=== PATIENT | male | born 1990 | race American Indian/Alaskan Native ===

== ENCOUNTER 2016-11-13 11:10 | Emergency (ER) | payer MEDICAID ==
[2016-11-13 11:10] VITALS: BMI 22.6
[2016-11-13 11:16] VITALS: BP 136/80; PULSE 107; RESP 18; TEMP 98.5; O2SAT 97
--- NOTE | 2016-11-13 11:41 | ED PDOC ---
HPI: CCC, URI, Sore Throat Time Seen by Provider: 11/13/16 11:19 Chief Complaint (Provider): Sore throat x 3 days History Per: Patient History/Exam Limitations: no limitations Have you had recent travel within the past 21 days to any of the following countries: [place], [place], [place] or [place]?: No Onset/Duration Of Symptoms: Days Current Symptoms Are (Timing): Still Present Location Of Pain: Throat Sick Contacts (Context): None Associated Symptoms: Fever, Chills, Sore Throat. denies: Cough, Sputum, Nasal Congestion, Vomiting, Diarrhea Ear Symptoms: Bilateral: None Severity: Moderate Additional Complaint(s): Pt states this is similar to previous episode of strep throat last year. Past Medical History Reviewed: Historical Data, Nursing Documentation, Vital Signs Vital Signs: Last Vital Signs Temp 98.5 F 11/13/16 11:15 Pulse 107 H 11/13/16 11:15 Resp 18 11/13/16 11:15 BP 136/80 11/13/16 11:15 Pulse Ox 97 11/13/16 11:15 - Medical History PMH: No Chronic Diseases - Surgical History Surgical History: No Surg Hx - Family History Family History: States: Unknown Family Hx - Living Arrangements Living Arrangements: With Family - Social History Current smoker - smoking cessation education provided: No Alcohol: Social Drugs: Denies - Home Medications Home Medications: Ambulatory Orders Medication Instructions Recorded Dicyclomine [Bentyl] 20 mg PO TID #30 tab 02/27/16 Guaifenesin/Pseudoephedrne HCl 1 tab PO DAILY PRN #30 ter 04/22/16 [Mucinex D 600 mg-60 mg] Promethazine HCl/Codeine 5 ml PO HS #80 ml 04/22/16 [Prometh-Codein 6.25-10 mg/5 ml] Atropine/Diphenoxylate [Lonox 1 tab PO Q8 #10 tab 09/15/16 0.025 MG-2.5 MG] Amoxicillin 875 mg PO BID #20 tab 11/13/16 - Allergies Allergies/Adverse Reactions: Allergies Allergy/AdvReac Type Severity Reaction Status Date / Time No Known Allergies Allergy Verified 04/22/16 18:46 Review of Systems ROS Statement: Except As Marked, All Systems Reviewed And Found Negative Constitutional: Positive for: Fever, Chills, Sweats, Malaise ENT: Positive for: Throat Pain Physical Exam - Reviewed Nursing Documentation Reviewed: Yes Vital Signs Reviewed: Yes - Physical Exam Appears: Positive for: Well, Non-toxic, No Acute Distress Head Exam: Positive for: ATRAUMATIC, NORMAL INSPECTION, NORMOCEPHALIC Skin: Positive for: Normal Color, Warm, DRY Eye Exam: Positive for: Normal appearance ENT: Positive for: Pharyngeal Erythema, Tonsillar Exudate. Negative for: Normal ENT Inspection Neck: Positive for: Normal, Painless ROM Cardiovascular/Chest: Positive for: Regular Rate, Rhythm Respiratory: Positive for: CNT, Normal Breath Sounds Back: Positive for: Normal Inspection Extremity: Positive for: Normal ROM Neurologic/Psych: Positive for: Alert, Oriented - ECG O2 Sat by Pulse Oximetry: 97 Disposition - Clinical Impression Clinical Impression: Strep pharyngitis - Patient ED Disposition Is Patient to be Admitted: No Counseled Patient/Family Regarding: Diagnosis, Need For Followup, Rx Given - Disposition Referrals: [facility] [Outside] Disposition: Routine/Home Disposition Time: 11:40 Condition: STABLE Prescriptions: Amoxicillin 875 mg PO BID #20 tab Instructions: Strep Throat (ED)
== END 2016-11-13 11:45 | disposition home or self-care (01) ==
LOC: H.ER 11:10
DX: J02.0 Streptococcal pharyngitis (principal)

== ENCOUNTER 2017-08-16 19:51 | Emergency (ER) | payer SELFPAY ==
[2017-08-16 19:51] VITALS: BMI 22.6
[2017-08-16 21:09] VITALS: BP 139/81; PULSE 100; RESP 17; TEMP 98.8; O2SAT 99
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
--- NOTE | 2017-08-17 11:26 | RAD ---
PROCEDURE: Left Ankle Radiographs. HISTORY: Posttraumatic left ankle pain COMPARISON: None FINDINGS: BONES: Normal. No fracture. JOINTS: Normal. No osteoarthritis. Ankle mortise maintained. Talar dome intact SOFT TISSUES: Normal. OTHER FINDINGS: None. IMPRESSION: Normal left ankle radiographs.
--- NOTE | 2017-08-17 11:27 | RAD ---
PROCEDURE: Left Foot Radiographs. HISTORY: fall, pain COMPARISON: None. FINDINGS: BONES: Normal. No fracture. JOINTS: Normal. SOFT TISSUES: Normal. OTHER FINDINGS: None. IMPRESSION: Normal left foot radiographs.
== END 2017-08-16 22:57 | disposition home or self-care (01) ==
LOC: H.ER 19:51
DX: S93.402A Sprain of unspecified ligament of left ankle, initial encounter (principal); S93.602A Unspecified sprain of left foot, initial encounter; X50.9XXA Other and unspecified overexertion or strenuous movements or postures, initial encounter; Y92.89 Other specified places as the place of occurrence of the external cause

== ENCOUNTER 2018-06-07 19:10 | Emergency (ER) | payer SELFPAY ==
[2018-06-07 19:10] VITALS: BMI 22.6
[2018-06-07 19:52] VITALS: PULSE 81
--- NOTE | 2018-06-07 20:50 | ED PDOC ---
HPI: Abdomen Time Seen by Provider: 06/07/18 20:10 Chief Complaint (Nursing): Abdominal Pain Chief Complaint (Provider): abdominal pain History Per: Patient History/Exam Limitations: no limitations Outside of [place] travel?: No Exacerbating Factors: None Alleviating Factors: None Last Bowel Movement: Today Additional Complaint(s): 27 y/o M with no PMH who presents to ED for abdominal pain X 3 days. Pt states that he started having RLQ abdominal pain 3 days ago noted while sitting down. He had 3 episodes of N/V that day and has continued to have intermittent nausea but no further vomiting. Denies sick contacts, fever, chills, night sweats, diarrhea, dysuria, penile discharge. Denies ever having had abdominal surgery. Has had normal appetite. Last BM today. Past Medical History Reviewed: Historical Data, Nursing Documentation, Vital Signs Vital Signs: Last Vital Signs Temp 98.6 F 06/07/18 19:50 Pulse 81 06/07/18 19:50 Resp 16 06/07/18 19:50 BP 154/85 H 06/07/18 19:50 Pulse Ox 97 06/07/18 19:50 - Medical History PMH: No Chronic Diseases - Surgical History Surgical History: No Surg Hx - Family History Family History: States: No Known Family Hx - Social History Current smoker - smoking cessation education provided: Yes Alcohol: Social Drugs: Denies - Home Medications Home Medications: Ambulatory Orders Medication Instructions Recorded Ciprofloxacin HCl [Cipro] 500 mg PO BID #14 tablet 01/30/17 Ibuprofen [Motrin Tab] 1 tab PO Q6 PRN #20 tab 08/16/17 - Allergies Allergies/Adverse Reactions: Allergies Allergy/AdvReac Type Severity Reaction Status Date / Time No Known Allergies Allergy Verified 06/07/18 19:50 Physical Exam - Reviewed Nursing Documentation Reviewed: Yes Vital Signs Reviewed: Yes - Physical Exam Appears: Positive for: Non-toxic Head Exam: Positive for: ATRAUMATIC Skin: Positive for: Normal Color Eye Exam: Positive for: Conjunctival injection (b/l) Cardiovascular/Chest: Positive for: Regular Rate, Rhythm Respiratory: Positive for: Normal Breath Sounds Gastrointestinal/Abdominal: Positive for: Soft, Tenderness (RLQ tenderness on palpation), Guarding. Negative for: Mass, Distended, Rebound Back: Positive for: Normal Inspection Rectal: Positive for: Deferred Neurologic/Psych: Positive for: Alert, Oriented - Laboratory Results Result Diagrams: 06/07/18 21:03 06/07/18 21:03 - ECG O2 Sat by Pulse Oximetry: 97 Medical Decision Making Medical Decision Making: cbc, cmp Urine dip CT abd/pelvis w/ IV contrast Pt went for CT but stated that he was concerned as he may have had allergic reaction in the past. I went to evaluate the patient who confirmed that he had a feeling of warmth in his face but never developed throat swelling or itching or rash. Patient agreed to proceed with CT scan. CT findings as per [facility]: 1. Enteritis. Infectious and inflammatory etiologies are considered. Consider consultation with GI service. 2. Small fat containing umbilical hernia is noted. Urine dip; no LE or nitrites. CT findings discussed with patient and advised that he may develop diarrhea. Return instructions given. Stable for d/c home. Disposition - Clinical Impression Clinical Impression: Abdominal pain - Patient ED Disposition Is Patient to be Admitted: No Counseled Patient/Family Regarding: Studies Performed, Diagnosis, Need For Followup - Disposition Referrals: [facility] [Outside] Disposition: Routine/Home Disposition Time: 00:17 Condition: STABLE Additional Instructions: Return to ER if you develop worsening N/V and are unable to keep any liquids down. You may develop diarrhea. If so, follow a low fat, no mild diet for several days. Instructions: Acute Abdomen (Belly Pain), Adult (DC), Nausea and Vomiting, Adult (DC) Forms: [employer] ([place]ayan) Print Language: BAHAMIAN
[2018-06-07 21:07] LABS: BASO # 0.1 K/uL (0.0-0.2); EOS # 0.1 K/uL (0.0-0.7); EOS % 0.9 % (0.0-4.0); HEMOGLOBIN 15.5 g/dL (12.0-18.0); LYMPH # 2.6 K/uL (1.0-4.3); MEAN CORPUSCULAR HEMOGLOBIN 30.8 pg (27.0-31.0); MEAN CORPUSCULAR HGB CONC 33.2 g/dL (33.0-37.0); MEAN PLATELET VOLUME 9.3 fl (7.2-11.7); MONO # 0.5 K/uL (0.0-0.8); MONO % 7.7 % (0.0-10.0); NEUT # 3.6 K/uL (1.8-7.0); NEUT % 52.4 % (50.0-75.0); RBC 5.02 Mil/uL (4.40-5.90); RED CELL DISTRIBUTION WIDTH 13.4 % (11.5-14.5); WHITE BLOOD COUNT 6.8 K/uL (4.8-10.8)
[2018-06-07 21:16] LABS: ALB/GLOB RATIO 1.4 (1.0-2.1); ALBUMIN 4.8 g/dL (3.5-5.0); ALT/SGPT 37 U/L (21-72); AST/SGOT 32 U/L (17-59); BLOOD UREA NITROGEN 10 mg/dl (9-20); GFR NON-AFRICAN AMERICAN > 60
[2018-06-07] MEDS ORDERED: Sodium Chloride 0.9% 50 ML IV ONE (21:45)
[2018-06-07] MEDS ORDERED: Iohexol 300 100 ML IJ ONE (21:45)
[2018-06-08 00:47] VITALS: BP 135/84; RESP 18; TEMP 98.3
[2018-06-08 05:30] VITALS: O2SAT 97
--- NOTE | 2018-06-08 10:55 | CT ---
Date of service: 06/07/2018 PROCEDURE: CT Abdomen and Pelvis with contrast HISTORY: r/o appendicitis COMPARISON: 07/24/2013. TECHNIQUE: Intravenous contrast dose: 90 cc Omnipaque 300 Radiation dose: Total exam DLP = 333.08 mGy-cm. This CT exam was performed using one or more of the following dose reduction techniques: Automated exposure control, adjustment of the mA and/or kV according to patient size, and/or use of iterative reconstruction technique. FINDINGS: LOWER THORAX: Unremarkable. LIVER: Unremarkable. No gross lesion or ductal dilatation. GALLBLADDER AND BILE DUCTS: Unremarkable. PANCREAS: Unremarkable. No gross lesion or ductal dilatation. SPLEEN: Unremarkable. ADRENALS: Unremarkable. No mass. KIDNEYS AND URETERS: Unremarkable. No hydronephrosis. No solid mass. VASCULATURE: Unremarkable. No aortic aneurysm. No atherosclerotic calcification or mural plaque present. BOWEL: Unremarkable. No obstruction. No gross mural thickening. APPENDIX: Normal appendix. PERITONEUM: Unremarkable. No free fluid. No free air. LYMPH NODES: Unremarkable. No enlarged lymph nodes. BLADDER: Unremarkable. REPRODUCTIVE: Unremarkable. BONES: No acute fracture. OTHER FINDINGS: Small periumbilical hernia containing fat only IMPRESSION: No significant or acute findings to account for/ related to the clinical presentation. Additional benign and/or incidental findings described above. Concordant results (preliminary interpretation) provided by [employer]. Procedure Completed: 22:19. Preliminary Report: Dictated and Authenticated: 23:42. Final Interpretation: 10:51. June 08, 2018
== END 2018-06-08 00:47 | disposition home or self-care (01) ==
LOC: H.ER 19:10
DX: R10.31 Right lower quadrant pain (principal)
CPT/HCPCS: 74177; 80053; 85025; 99283; Q9967

== ENCOUNTER 2018-11-20 20:19 | Emergency (ER) | payer SELFPAY ==
[2018-11-20 20:19] VITALS: BMI 22.6
[2018-11-20 20:41] VITALS: RESP 16
--- NOTE | 2018-11-20 20:55 | ED PDOC ---
HPI: Male Pain Time Seen by Provider: 11/20/18 20:46 Chief Complaint (Nursing): Male Genitourinary Chief Complaint (Provider): testicular pain History Per: Patient (28 y/o male here with left testicular pain x 5 days worsening today. Denies any dysuria/urinary discomfort/back pain/vomiting/fevers/chills. Denies any concern for STD. Took motrin yesterday without relief.) Past Medical History Reviewed: Historical Data, Nursing Documentation, Vital Signs Vital Signs: Last Vital Signs Temp 98.6 F 11/20/18 20:40 Pulse 102 H 11/20/18 20:40 Resp 16 11/20/18 20:40 BP 161/116 H 11/20/18 20:40 Pulse Ox 99 11/20/18 20:40 Primary Care Provider: FAMILY PROVIDER,NO - Family History Family History: States: Unknown Family Hx - Home Medications Home Medications: Ambulatory Orders Medication Instructions Recorded Ciprofloxacin HCl [Cipro] 500 mg PO BID #14 tablet 01/30/17 Ibuprofen [Motrin Tab] 1 tab PO Q6 PRN #20 tab 08/16/17 Ibuprofen [Motrin] 600 mg PO Q8 PRN #21 tab 11/21/18 - Allergies Allergies/Adverse Reactions: Allergies Allergy/AdvReac Type Severity Reaction Status Date / Time No Known Allergies Allergy Verified 06/07/18 19:50 Review of Systems ROS Statement: Except As Marked, All Systems Reviewed And Found Negative Physical Exam - Reviewed Nursing Documentation Reviewed: Yes Vital Signs Reviewed: Yes - Physical Exam Appears: Positive for: Well, Non-toxic, No Acute Distress Head Exam: Positive for: ATRAUMATIC, NORMAL INSPECTION, NORMOCEPHALIC Skin: Positive for: Normal Color, Warm, DRY Eye Exam: Positive for: EOMI, Normal appearance, PERRL ENT: Positive for: Normal ENT Inspection Neck: Positive for: Normal, Painless ROM Cardiovascular/Chest: Positive for: Regular Rate, Rhythm Respiratory: Positive for: CNT, Normal Breath Sounds Gastrointestinal/Abdominal: Positive for: Normal Exam, Soft Male Genital Exam: Positive for: scrotum tenderness (L) (mild testicular tenderness with palpation. No mass noted. No erythema/swelling.) Back: Positive for: Normal Inspection Extremity: Positive for: Normal ROM Neurological/Psych: Positive for: Awake, Alert, Normal Tone - Laboratory Results Result Diagrams: 11/20/18 21:00 05/12/19 21:00 - ECG O2 Sat by Pulse Oximetry: 99 - Progress ED Course And Treament: us SCROTUM: NO ACUTE ABNORMALITY EVIDENT ON SONOGRAPHIC EXAMINATION OF THE SCROTUM. Disposition - Clinical Impression Clinical Impression: Testicular pain, left - Patient ED Disposition Is Patient to be Admitted: No - Disposition Referrals: Michele Lepe Jr., MD [Staff Provider] - Disposition: Routine/Home Disposition Time: 00:13 Condition: IMPROVED Prescriptions: Ibuprofen [Motrin] 600 mg PO Q8 PRN #21 tab PRN Reason: Pain, Moderate (4-7) Instructions: Testicular Injury Forms: [facility] ED School/Work Excuse
[2018-11-20 21:23] LABS: ALB/GLOB RATIO 1.5 (1.0-2.1); ALBUMIN 5.1 g/dL (3.5-5.0); ALT/SGPT 37 U/L (21-72); AST/SGOT 36 U/L (17-59); BLOOD UREA NITROGEN 14 mg/dl (9-20); CALCIUM 9.7 mg/dL (8.4-10.2); GFR NON-AFRICAN AMERICAN > 60
[2018-11-20 21:25] LABS: BASO % 0.7 % (0.0-2.0); EOS % 0.7 % (0.0-4.0); HEMOGLOBIN 15.2 g/dL (12.0-18.0); LYMPH # 2.4 K/uL (1.0-4.3); LYMPH % 34.3 % (20.0-40.0); MEAN CELL VOLUME 94.3 fl (80.0-94.0); MEAN CORPUSCULAR HEMOGLOBIN 31.3 pg (27.0-31.0); MEAN CORPUSCULAR HGB CONC 33.2 g/dL (33.0-37.0); MEAN PLATELET VOLUME 9.1 fl (7.2-11.7); MONO # 0.6 K/uL (0.0-0.8); MONO % 8.2 % (0.0-10.0); NEUT # 3.9 K/uL (1.8-7.0); NEUT % 56.1 % (50.0-75.0); RBC 4.86 Mil/uL (4.40-5.90); RED CELL DISTRIBUTION WIDTH 13.2 % (11.5-14.5)
[2018-11-20 21:36] LABS: URINE BILIRUBIN SMALL (NEGATIVE); URINE BLOOD NEGATIVE (NEGATIVE); URINE CLARITY SLIGHTY-CLOUDY (Clear); URINE COLOR YELLOW (YELLOW); URINE GLUCOSE (UA) NEG (NEGATIVE); URINE LEUKOCYTE ESTERASE NEG Leu/uL (Negative); URINE PROTEIN 100 mg/dL (NEGATIVE)
[2018-11-21] MEDS ORDERED: Potassium Chloride 20 mEq ER Tab PO ONE ×2 (00:12→00:25)
[2018-11-21 00:29] VITALS: BP 133/83; PULSE 98; TEMP 98.2
[2018-11-21 03:49] VITALS: O2SAT 99
--- NOTE | 2018-11-21 11:53 | US ---
Date of service: 11/20/2018 HISTORY: LEFT TESTICULAR PAIN TECHNIQUE: Realtime sonography through the scrotum with color and doppler flow. COMPARISON: 07/31/2014. Testicular ultrasound. FINDINGS: RIGHT TESTICLE: Measures 2.1 x 3.8 x 4 cm. Normal echotexture and flow. RIGHT EPIDIDYMIS: Epididymal head measures 0.6 x 2.2 x 1.0 cm. 3 mm epididymal head cyst. LEFT TESTICLE: Measures 1.9 x 3.7 x 3.9 cm. Normal echotexture and flow. LEFT EPIDIDYMIS: Epididymal head measures 0.7 x 0.6 x 2.5 cm. 3 mm epididymal head cyst. HYDROCELE: None. VARICOCELE: None. OTHER FINDINGS: None. IMPRESSION: Negative study for epididymitis, orchitis, torsion or testicular mass. Bilateral simple epididymal cysts. Concordant findings (preliminary report) provided by [facility].
== END 2018-11-21 00:40 | disposition home or self-care (01) ==
LOC: H.ER 20:19
DX: N50.812 Left testicular pain (principal)
CPT/HCPCS: 80053; 81003; 85025; 87086; 87491; 87591; 93975; 96374; 99284; J1885